=== PATIENT | female | born 1985 | race African-American/Black ===

== ENCOUNTER 2021-02-18 23:23 | Observation (INO) ==
[2021-02-19] MEDS ORDERED: SODIUM CHLORIDE 0.9% 1,000 ML IV STA (00:35)
[2021-02-19] MEDS ORDERED: ONDANSETRON 4 MG/2 ML VIAL IV STA (00:35)
[2021-02-19] MEDS ORDERED: KETOROLAC 30 MG/1 ML VIAL IV STA (00:35)
[2021-02-19 00:49] LABS: Basophils % 0.2 % (0.0-0.8); Eosinophils % 0.1 % (0.00-10.9); Hematocrit 34.8 VOL% (35.7-47.0); Hemoglobin 11.5 GM/DL (12.0-16.0); Immature Granulocytes % 0.5 %; Immature Granulocytes Absolute 0.05 #; Lymphocytes # 1.6 10*3/uL (1.4-4.0); Lymphocytes % 16.2 % (21.3-54.2); Mean Corpuscular Volume 89.9 FL (87-102); Mean Platelet Volume 9.2 FL (9.6-12.0); Monocytes % 2.7 % (1.7-12.7); Neutrophils % 80.3 % (38.7-73.9); Platelet Count 336 T/CUMM (130-400); Red Blood Count 3.87 MC/CUMM (3.8-5.5); Red Cell Distribution Width 12.4 % (9.3-17.3); White Blood Count 9.7 T/CUMM (4-12)
[2021-02-19 01:00] LABS: Albumin 4.6 G/DL (3.4-5.0); Bilirubin,Total 0.4 MG/DL (0.2-1.0); Calcium 9.5 MG/DL (8.5-10.1); Potassium 3.5 MMOL/L (3.5-5.1); Total Protein 9.2 G/DL (6.4-8.2)
[2021-02-19 01:34] LABS: Bilirubin,Urine Negative (Negative); Blood, Urine Moderate mg/dL (Negative); Glucose,Urine (UA) 50 mg/dL (Negative); Ketones,Urine Negative (Negative); Nitrite,Urine Negative (Negative); Protein,Urine Negative; RBC,Urine 8 /HPF (0-4); Squamous Epithelial Cell,Urine Occasional /HPF (0-10); Urine Appearance CLEAR (Clear); Urine Color Straw (Yellow); Urine Specific Gravity 1.011 (1.001-1.035); Urine Urobilinogen < 2.0 EU/DL (0.2-1.0)
[2021-02-19 01:49] LABS: Barbiturates Screen,Urine Negative (Negative); Benzodiazepines Screen,Urine Negative (Negative); Cannabinoid Screen,Urine Positive (Negative); Opiate Screen,Urine Negative (Negative); Phencyclidine Screen,Urine Negative (Negative)
[2021-02-19] MEDS ORDERED: PIPERACILLIN/TAZOBACTAM 3,375 MG in SODIUM CHLORIDE 0.9% 100 ML IV STA (04:40)
[2021-02-19] MEDS ORDERED: ONDANSETRON 4 MG/2 ML VIAL IV PRN ×2 (04:42→09:29)
[2021-02-19] MEDS: DEXTROSE 5% NACL 0.45% 1,000 ML IV SCH ×2 (06:23→17:23)
[2021-02-19] MEDS: MORPHINE 4 MG/1 ML VIAL IV PRN ×2 (06:39→11:49)
[2021-02-19] MEDS ORDERED: LIDOCAINE 1%/EPI INJ 20 ML VIAL ONE (07:18)
[2021-02-19] MEDS ORDERED: TISSUE ADHESIVE 1 EACH APPLICATOR TOP ONE (07:18)
[2021-02-19] MEDS ORDERED: BUPIVACAINE MPF 0.25% 30 ML VIAL ONE (07:18)
[2021-02-19] MEDS ORDERED: MIDAZOLAM 2 MG/2 ML VIAL ONE (07:44)
[2021-02-19] MEDS ORDERED: propofoL 200 MG/20 ML VIAL IV ONE (07:44)
[2021-02-19] MEDS ORDERED: SEVOFLURANE 1 UNIT/15 MINUTE INH ONE ×4 (07:44→08:43)
[2021-02-19] MEDS ORDERED: ONDANSETRON 4 MG/2 ML VIAL ONE (07:44)
[2021-02-19] MEDS ORDERED: ROCURONIUM 50 MG/5 ML VIAL IV ONE (07:44)
[2021-02-19] MEDS ORDERED: LIDOCAINE 2% 5 ML VIAL ONE (07:44)
[2021-02-19] MEDS ORDERED: SUCCINYLCHOLINE 200 MG/10 ML VIAL ONE (07:44)
[2021-02-19] MEDS ORDERED: DEXAMETHASONE 4 MG/1 ML VIAL ONE (07:44)
[2021-02-19] MEDS ORDERED: fentaNYL 100 MCG/2 ML VIAL ONE (07:45)
[2021-02-19] MEDS ORDERED: KETOROLAC 30 MG/1 ML VIAL ONE (07:45)
[2021-02-19] MEDS ORDERED: SODIUM CHLORIDE 0.9% 1,000 ML IV ONE (08:24)
[2021-02-19] MEDS ORDERED: GLYCOPYRROLATE 0.4 MG/2 ML VIAL ONE (08:40)
[2021-02-19] MEDS ORDERED: NEOSTIGMINE 10 MG/10 ML VIAL ONE (08:41)
[2021-02-19] MEDS ORDERED: HYDROmorphone 2 MG/1 ML VIAL IV PRN (09:29)
[2021-02-19] MEDS ORDERED: MEPERIDINE 25 MG/1 ML VIAL IV PRN (09:29)
[2021-02-19] MEDS: PANTOPRAZOLE 40 MG VIAL IV SCH (11:13)
[2021-02-19] MEDS: PIPERACILLIN/TAZOBACTAM 3,375 MG in SODIUM CHLORIDE 0.9% 100 ML IV SCH ×2 (16:04→21:14)
[2021-02-19] MEDS ORDERED: FUROSEMIDE 20 MG/2 ML VIAL IV ONE (16:04)
[2021-02-19 16:40] LABS: Basophils % 0.2 % (0.0-0.8); Hematocrit 29.7 VOL% (35.7-47.0); Hemoglobin 9.7 GM/DL (12.0-16.0); Immature Granulocytes % 0.5 %; Immature Granulocytes Absolute 0.07 #; Lymphocytes # 1.3 10*3/uL (1.4-4.0); Lymphocytes % 9.9 % (21.3-54.2); Mean Corpuscular HGB Conc 32.7 GM/DL (32-36); Mean Corpuscular Volume 91.1 FL (87-102); Mean Platelet Volume 9.1 FL (9.6-12.0); Monocytes % 1.9 % (1.7-12.7); Neutrophils % 87.5 % (38.7-73.9); Platelet Count 327 T/CUMM (130-400); Red Blood Count 3.26 MC/CUMM (3.8-5.5); Red Cell Distribution Width 12.6 % (9.3-17.3)
[2021-02-19 16:55] LABS: Calcium 8.3 MG/DL (8.5-10.1); Osmolality,Calculated 272.1 MOS/KG (273-304); Potassium 4.1 MMOL/L (3.5-5.1)
[2021-02-20 04:54] LABS: Basophils % 0.1 % (0.0-0.8); Hematocrit 25.7 VOL% (35.7-47.0); Hemoglobin 8.4 GM/DL (12.0-16.0); Immature Granulocytes % 0.5 %; Immature Granulocytes Absolute 0.05 #; Lymphocytes # 2.3 10*3/uL (1.4-4.0); Lymphocytes % 21.4 % (21.3-54.2); Mean Corpuscular HGB Conc 32.7 GM/DL (32-36); Mean Corpuscular Volume 90.8 FL (87-102); Mean Platelet Volume 9.6 FL (9.6-12.0); Monocytes % 5.8 % (1.7-12.7); Neutrophils % 72.2 % (38.7-73.9); Platelet Count 291 T/CUMM (130-400); Red Blood Count 2.83 MC/CUMM (3.8-5.5); Red Cell Distribution Width 12.9 % (9.3-17.3); White Blood Count 10.8 T/CUMM (4-12)
[2021-02-20] MEDS: PIPERACILLIN/TAZOBACTAM 3,375 MG in SODIUM CHLORIDE 0.9% 100 ML IV SCH ×3 (06:13→22:05)
[2021-02-20] MEDS: PANTOPRAZOLE 40 MG VIAL IV SCH (09:40)
[2021-02-20 12:40] LABS: Hematocrit 24.9 VOL% (35.7-47.0)
[2021-02-21 05:03] LABS: Hematocrit 24.1 VOL% (35.7-47.0)
[2021-02-21] MEDS: PIPERACILLIN/TAZOBACTAM 3,375 MG in SODIUM CHLORIDE 0.9% 100 ML IV SCH (05:45)
[2021-02-21] MEDS: PANTOPRAZOLE 40 MG VIAL IV SCH (09:35)
[2021-02-21] MEDS ORDERED: SIMETHICONE CHEW 125 MG TABLET PO SCH (11:00)
[2021-02-21 12:15] VITALS: BP 131/65
== END 2021-02-21 12:19 | disposition home or self-care (01) ==
LOC: N.ED 23:23 → N.EDINP 23:23 → N.5E 02-19 05:32
PROVIDERS: ADMIT Surgery; ATTEND Surgery